=== PATIENT | female | born 1940 | race Caucasian/White ===

== ENCOUNTER → 2016-05-29 | Outpatient (CLI) | payer MEDICARE, BC ==
[~2016-05-29] MED LIST: AFRIN NASAL SPR15 M1 NS; AMBIEN CR 12.12.5 MG PO; AMBIEN CR12.5 MG PO; BENADRYL25 M1 PO; BENICAR HCT 12.1 TA1 PO; BETAPACE 80MG80 MG PO; CALCIUM + D 5001 TAB PO; CARDIZEM CD 24240 MG PO; CENTRUM SILVER1 TA1 PO; COMBIRESP IH; COMBIVENT INH14.7 GM IH; COUMADIN 22.5 MG/TAB PO; COUMADIN 5MG5 MG/TAB PO; CRANBERRY FRUI405 MG PO; CRANBERRY1 CAP PO; CRANBERRY450 MG PO; DETROL LA4 PO; DULERA1 ARO IH; ELIQUIS 5MG PO; FLONASEALLERGY NS; FORADIL AERO0.012 MG IH; IMODIUM 2MG CAPS2 MG PO; LASIX 20MG TABL20 MG PO; LASIX20 MG PO; LEVOTHYROXIN0.125 MG PO; PREDNISONE20 MG PO; PROBIOTIC FORMU1 CAP PO; SOTALOL80 MG PO; SPIRIVA HANDIH18 MCG IH; SYNTHROID0.125 MG/T PO; THEO-24 30300 MG/CAP PO; THEO-DUR 2200 MG/TAB PO; THEO-DUR 3300 MG/TAB PO; THEOPHYLLINE200 MG PO; TYLENOL 500MG500 MG PO; WARFARIN SOD5 MG PO; WARFARIN SODIU2.5 MG PO
== END ==
LOC: COL.RAD 13:33
DX: M17.12 Unilateral primary osteoarthritis, left knee (principal); M25.562 Pain in left knee

== ENCOUNTER → 2016-06-17 | Outpatient (REF) | LOC: ZLAB.WCH 11:43 | DX: Z01.89 Encounter for other specified special examinations (principal) ==

== ENCOUNTER → 2016-07-23 | Outpatient (REF) | LOC: ZLAB.WCH 15:59 | DX: Z01.89 Encounter for other specified special examinations (principal) ==

== ENCOUNTER → 2016-07-23 | Outpatient (REF) | LOC: ZLAB.WCH 15:20 | DX: Z01.89 Encounter for other specified special examinations (principal) ==

== ENCOUNTER → 2016-07-23 | Outpatient (REF) | LOC: ZLAB.WCH 15:43 | DX: Z01.89 Encounter for other specified special examinations (principal) ==

== ENCOUNTER → 2016-07-24 | Outpatient (REF) | LOC: ZLAB.WCH 11:30 | DX: Z01.89 Encounter for other specified special examinations (principal) ==

== ENCOUNTER 2016-09-29 08:46 | Observation (INO) | payer MEDICARE, BC ==
[~2016-09-29] VITALS: Ht 160 cm; Wt 112.0 kg
[~2016-09-29 08:46] MED LIST changes: -CARDIZEM CD 24240 MG PO; -FLONASEALLERGY NS; -PREDNISONE20 MG PO
[2016-09-29 10:46] LABS: BASO % 0.4 % (0.0-2.0); EOS # 0.1 (0.0-0.7); GRAN # 8.9 (1.4-6.5); GRAN % 80.6 % (42.2-75.2); HEMATOCRIT 41.8 % (37.0-47.0); HEMOGLOBIN 13.6 g/dl (12.5-16.0); LYMPH # 1.3 (1.2-3.4); LYMPH % 11.6 % (20.0-51.0); MEAN CELL VOLUME 94 fl (80.0-100.0); MEAN CORPUSCULAR HEMOGLOBIN 31 pg (27.0-31.0); MEAN CORPUSCULAR HGB CONC 33 g/dl (33.0-37.0); MONO # 0.7 (0.1-0.6); PLATELET COUNT 215 K/mm3 (130-400); RED BLOOD COUNT 4.46 M/mm3 (4.10-5.30); REDCELL DISTRIBUTION WIDTH-CV 14.5 % (11.5-14.5)
[2016-09-29 11:01] LABS: ADJUSTED CALCIUM 9.5 mg/dL (8.4-10.2); ALANINE AMINOTRANSFERASE 23 U/L (9-52); ALKALINE PHOSPHATASE 88 U/L (50-136); ANION GAP 9 mmol/L (7-16); BILIRUBIN,TOTAL 0.8 mg/dL (0.0-1.0); BLOOD UREA NITROGEN 12 mg/dL (7-17); C-REACTIVE PROTEIN 2.1 mg/dL (0.0-0.9); CALCIUM 9.5 mg/dL (8.4-10.2); CARBON DIOXIDE 32 mmol/L (22-30); CHLORIDE 101 mmol/L (98-107); CREATININE, serum 0.66 mg/dL (0.52-1.25); GLUCOSE 116 mg/dL (74-106); POTASSIUM 3.5 mmol/L (3.4-5.0); SODIUM 142 mmol/L (137-145); TOTAL PROTEIN 7.3 gm/dL (6.4-8.2)
[2016-09-29 11:09] LABS: B-TYPE NATRIURETIC PEPTIDE 591 pg/mL (0-450)
[2016-09-29 11:11] LABS: TROPONIN-I < 0.012 ng/mL (0.000-0.034)
[2016-09-29 12:35] VITALS: BP 152/79; PULSE 70; TEMP 97.7
[2016-09-29 16:09] VITALS: BP 131/65; PULSE 80; TEMP 97.6
[2016-09-29 17:58] LABS: ARTERIAL BLD GAS TCO2 CT 33.1; ARTERIAL BLOOD GAS BASE EXCESS 6.2 (-2-2); ARTERIAL BLOOD GAS HCO3 31.6 meq/L (22-26); ARTERIAL BLOOD GAS PHT 7.44 C (7.35-7.45); ARTERIAL BLOOD GAS PO2 64.7 mmHg (80-100); ARTERIAL BLOOD GAS PO2T 64.7 (80-100); ARTERIAL BLOOD GAS pH 7.44 (7.35-7.45); OXYHEMOGLOBIN 92.1 %
[2016-09-29 17:59] LABS: ATS? YES
[2016-09-29 20:09] VITALS: BP 156/81; PULSE 79; TEMP 98.2
[2016-09-29 22:29] VITALS: BP 163/76; PULSE 71; TEMP 98.7
[2016-09-30 03:47] VITALS: BP 147/68; PULSE 95; TEMP 98.3
[2016-09-30 04:41] LABS: PH 5 (5-8); URINE APPEARANCE Hazy; URINE BACTERIA None Seen /hpf; URINE BILIRUBIN Negative (NEGATIVE); URINE BLOOD Negative (NEGATIVE); URINE COLOR Yellow; URINE GLUCOSE Negative (NEGATIVE); URINE KETONE 1+ (NEGATIVE); URINE RBC 0-2 /hpf; URINE UROBILINOGEN Negative (NEGATIVE)
[2016-09-30 08:03] VITALS: BP 175/69; PULSE 68; TEMP 97.8
[2016-09-30 11:47] VITALS: BP 165/85; PULSE 66; TEMP 97.6
[2016-09-30 14:07] LABS: HEMATOCRIT 42.5 % (37.0-47.0); HEMOGLOBIN 14.2 g/dl (12.5-16.0); MEAN CELL VOLUME 91 fl (80.0-100.0); MEAN CORPUSCULAR HEMOGLOBIN 30 pg (27.0-31.0); MEAN CORPUSCULAR HGB CONC 33 g/dl (33.0-37.0); MEAN PLATELET VOLUME 9.5 fl (7.4-10.4); PLATELET COUNT 215 K/mm3 (130-400); RED BLOOD COUNT 4.68 M/mm3 (4.10-5.30); REDCELL DISTRIBUTION WIDTH-CV 14.6 % (11.5-14.5); WHITE BLOOD COUNT 15.6 K/mm3 (4.8-10.8)
[2016-09-30 14:08] LABS: ADD PATHOLOGY DIFF REVIEW NO
[2016-09-30 14:22] LABS: CALCIUM 9.5 mg/dL (8.4-10.2); CREATININE, serum 0.76 mg/dL (0.52-1.25); POTASSIUM 4.1 mmol/L (3.4-5.0); THEOPHYLLINE 2.7 ug/mL (10.0-20.0)
[2016-09-30 14:27] LABS: BAND 11 % (0-10); NEUTROPHILS 82 % (42.0-75.2); PLATELET ESTIMATE NORMAL (NORMAL); TOTAL CELLS COUNTED 100
[2016-09-30 15:16] VITALS: BP 128/66; PULSE 66; TEMP 97.5
[2016-09-30 19:31] VITALS: BP 148/61; PULSE 72; TEMP 97.6
[2016-09-30 23:56] VITALS: BP 134/58; PULSE 71; TEMP 97.5
[2016-10-01 04:47] VITALS: BP 140/72; PULSE 65; TEMP 98.1
[2016-10-01 07:55] VITALS: BP 143/59; PULSE 60; TEMP 98.4
[2016-10-01] MEDS ORDERED: PREDNISONE20 MG PO (09:06)
[2016-10-01] MEDS ORDERED: FLONASEALLERGY NS (09:06)
[2016-10-01] MEDS ORDERED: BENICAR HCT 12.1 TA1 PO (09:08)
[2016-10-01] MEDS ORDERED: CARDIZEM CD 24240 MG PO (09:08)
== END 2016-10-01 17:33 | disposition home or self-care (01) ==
LOC: COL.ER 08:46 → MEDICAL 11:59
PROVIDERS: Emergency Medicine; Internal Medicine; Physician Assistant
DX: R07.9 Chest pain, unspecified (principal); I48.91 Unspecified atrial fibrillation; G47.33 Obstructive sleep apnea (adult) (pediatric); E66.01 Morbid (severe) obesity due to excess calories; E03.9 Hypothyroidism, unspecified; I87.2 Venous insufficiency (chronic) (peripheral); D72.829 Elevated white blood cell count, unspecified; I11.0 Hypertensive heart disease with heart failure; I50.30 Unspecified diastolic (congestive) heart failure; J98.11 Atelectasis; I71.4 Abdominal aortic aneurysm, without rupture; J44.1 Chronic obstructive pulmonary disease with (acute) exacerbation; J96.21 Acute and chronic respiratory failure with hypoxia; Z79.01 Long term (current) use of anticoagulants; Z95.0 Presence of cardiac pacemaker; Z90.710 Acquired absence of both cervix and uterus; Z90.5 Acquired absence of kidney; Z87.891 Personal history of nicotine dependence; Z90.49 Acquired absence of other specified parts of digestive tract; Z82.3 Family history of stroke
CPT/HCPCS: 99232-AI; G0378; G8978-GP; G8979-GP; G8987-GO; G8988-GO; J1940; J2920; J2930; J7512

== ENCOUNTER → 2018-06-27 | Outpatient (REF) ==
[~2018-06-27] MED LIST changes: +CARDIZEM CD 24240 MG PO; +FLONASEALLERGY NS; +PREDNISONE20 MG PO
== END ==
LOC: ZLAB.WCH 16:00
DX: Z01.89 Encounter for other specified special examinations (principal)